=== PATIENT | male | born 1945 | race Caucasian/White ===

== ENCOUNTER → 2020-04-24 | Outpatient (CLI) | payer OTHER, BC ==
[~2020-04-24] MED LIST: ACCUPRIL40 MG PO; ADULT LOW DOSE81 MG PO; BUMETANIDE 1 MG1 M1 PO; BUPIVACAIN IMPLANT; FELDENE20 MG PO; FUROSEMIDE 20 M20 M1 PO; LIPITOR 20 MG T20 M1 PO; LOVASTAT40 PO; OMEPRAZOLE40 MG PO; PERCOCET 5-3251 EACH PO; PROAIR HFA8.5 GM INH; TUMS X-STR300 MG PO; VITAMIN C500 M2 PO
== END ==
LOC: LAB 14:29
PROVIDERS: ATTEND Orthopaedic Surgery
DX: Z01.812 Encounter for preprocedural laboratory examination (principal); Z20.822 Contact with and (suspected) exposure to COVID-19

== ENCOUNTER 2020-04-28 10:07 | Inpatient (IN) | payer OTHER, BC ==
[~2020-04-28] VITALS: Ht 182.9 cm; Wt 80.7 kg
--- NOTE | ~2020-04-28 | EKG ---
[place] [address] [facility] [place] [address] ELECTROCARDIOGRAM REPORT Name: SANA VILLATORO Rosales Room #: 201-P ADM IN M.R.#: [id number] Admission: 04/28/20 Attend Phys: Tyler Pena MD Discharge: Date of : 41 Report #: [id number] [facility] Test Date: 2020-04-30 Test Time: 12:13:10 Pat Name: SANA VILLATORO Department: Room: 201 P Gender: M Skilled Helper: CHANO : 1945 Requested By: Amari Zaldivar Order Number: [id number] MD: Measurements Intervals [place] Rate: 114 P: ND: QRS: 79 QRSD: 95 T: 92 QT: 325 QTc: 448 Interpretive Statements Atrial fibrillation Anterolateral infarct, age indeterminate Compared to ECG 04/30/2020 03:21:41 Myocardial infarct finding now present Sinus rhythm no longer present [email or web address] By: 12 121 Alberto Dominguez MD /CHRISTOPHER
[2020-04-28 13:18] VITALS: BP 148/82
[2020-04-28 13:32] LABS: CALCIUM 9.3 mg/dL (8.5-10.1); CREATININE 1.2 mg/dL (0.7-1.3); POTASSIUM 3.5 mmol/L (3.5-5.1)
[2020-04-28 19:11] VITALS: BP 127/76
--- NOTE | 2020-04-28 21:22 | NUR ---
ADMISSION ASSESSMENT COMPLETED.PT SEEMS UPSET AND DOESNT WANT TO BE BOTHERED MUCH, HOLDING HIS FOREHEAD DUE TO THE CHRONIC HEADACHE.PT HAS URINAL AVAILABLE. TOOK MEDS WHOLE, NO N/V. FEEDING SELF DINNER WITH LEFT HAND, R ELBOW RESTING ON PILLOW WITH ICE TERESA IN PLACE. PT IS AFEBRILE. PT WEANING SELF OFF OF THE OXYGEN-SATS AT 94% ON ROOM AIR AT THIS TIME. GOOD CSM TO R HAND.WILL CONTINUE WITH POC TILL EOS.
[2020-04-29 05:20] VITALS: BP 101/60
[2020-04-29 08:17] VITALS: BP 99/65
--- NOTE | 2020-04-29 16:34 | NUR ---
Case opened to follow for dc planning. Irrigation System Installer visited with the pt at bedside and cm role introduced. The pt is a&ox4 and [place], [place]. He is indep with gait, adl's and drives. He has had recurrent issues with his rt elbow from a injury 2 years ago and resulting hardware infection. He admitted for surgical I/D yesterday that included tissue and bone bx and cultures. He notes recurring headaches and recent issues with his gastric ulcers. He has had some workup per his PCP Dr. Sabas Awad. He feels the headaches might be related to a bone infection and has hx of osteo in this same elbow. His brother is his primary emergency contact, but his dtr, who is a teacher, is planning to come up and stay with him a few days at [place]. He is agreeable to HH/infusion services if indicated at [place]. Awaiting ID imput and bx/culture results. He is up ad brie in the room but weak. He denies agency preference. Home infusion referral faxed to both [facility] and [facility] for benefit check. Will have the dc nurse discharge planner check HH providers [place]: [facility], [facility].
[2020-04-29 17:00] VITALS: BP 105/68
--- NOTE | 2020-04-29 17:20 | NUR ---
FAXED REFERRAL TO [facility]. CONFIRMED WITH ANG THAT THEY COULD SEE PATIENT IN [place], [place] FOR NURSING, OT AND WOUND CARE ON 05/01/20. [facility] [employer] SCIENTIST SENT REFERRALS FOR INFUSION THERAPY. (ANSWERING SERVICE ONLY AVAILABLE AT [facility] AND [facility] SO CONTACTED [facility].) [facility] P [phone]; FAX [phone]
[2020-04-29 17:29] VITALS: BP 105/68
[2020-04-29 20:55] VITALS: BP 106/66
[2020-04-30] VITALS (13 sets, daily range): BP systolic 93–104; BP diastolic 58–71
--- NOTE | 2020-04-30 02:50 | NUR ---
PT CALLED AT ABOUT 2345 WITH C/O CHEST PRESSURE. HE WAS HAVING DIFFICULTY BREATHING LAYING FLAT AND HAD TO ELEVATE HOB. STAT O2 WAS 97% ON ROOM AIR.PT PLACED ON /. CALL PLACED TO RUBY RIVAS CALLED LATER FOR HOSPITALIST TO BE CONSULTED.REVIEW OF CHART SHOWS PCP DR MAYNARD IS FOLLOWING PT.PT SYMPTOMS RESOLVED BY AROUND 0100.DENIES ANY PAIN OR DISCOMFORT AT THIS TIME. WILL DO EKG PER ORDERS, THEN UPDATE DOCTOR.
[2020-04-30 05:20] LABS: ABSOLUTE NEUTROPHILS 4.4 thou/uL (1.4-8.2); BASOPHILS 0.3 % (0.0-2.0); EOSINOPHILS 0.9 % (0.0-3.0); HEMATOCRIT 34.4 % (42.0-52.0); HEMOGLOBIN 11.4 gm/dL (14.0-18.0); LYMPHOCYTES 21.3 % (24.0-44.0); MCH 31.3 pg (26.0-34.0); MCV 94.9 fL (80.0-100.0); MONOCYTES 8.4 % (1.0-8.0); PLATELET COUNT 135 thou/uL (150-400); POLYS 69.1 % (36.0-66.0); RBC 3.63 mil/uL (4.50-6.00); RDW 13.8 % (10.5-14.5); WBC 6.4 thou/uL (4.0-11.0)
[2020-04-30 06:01] LABS: ALBUMIN 2.9 g/dL (3.4-5.0); ANION GAP 5 mmol/L (7-16); BUN 19 mg/dL (7-18); CALCIUM 8.8 mg/dL (8.5-10.1); CHLORIDE 105 mmol/L (98-107); CO2 32 mmol/L (21-32); CREATININE 1.3 mg/dL (0.7-1.3); GLUCOSE 111 mg/dL (74-106); POTASSIUM 3.7 mmol/L (3.5-5.1); SGOT 31 U/L (15-37); SGPT 18 U/L (30-65); SODIUM 142 mmol/L (136-145); TOTAL BILIRUBIN 0.2 mg/dL (0.2-1.0)
--- NOTE | 2020-04-30 07:27 | EKG ---
[place] [address] [facility] [place] [address] ELECTROCARDIOGRAM REPORT Name: SANA VILLATORO Room #: 443- ADM IN M.R.#: [id number] Admission: 04/28/20 Attend Phys: Tyler Pena MD Discharge: Date of : 41 Report #: [id number] [facility] Test Date: 2020-04-30 Test Time: 03:21:41 Pat Name: SANA VILLATORO Department: Room: 443 P Gender: M Medical Laboratory Technical Officer: LIZETH : 1945 Requested By: Martita Daniels Order Number: [id number] : Seth Lacy Measurements Intervals [place] Rate: 60 P: 75 ME: 216 QRS: 54 QRSD: 105 T: 102 QT: 466 QTc: 466 Interpretive Statements Sinus rhythm Borderline prolonged ME interval Borderline low voltage, extremity leads Nonspecific T abnrm, anterolateral leads Compared to ECG 04/05/2011 09:24:25 Inferior Q waves no longer present Q waves no longer present Electronically Signed On 04-30-2020 7:27:34 LIGHT RAIL TRAIN OPERATOR by Seth Lacy [email or web address] <ELECTRONICALLY SIGNED> By: Seth Lacy MD, [facility] 04/30/20 0727 032 032 Seth Lacy MD, [facility] /EPI
[2020-04-30 09:16] LABS: CHOLESTEROL 103 mg/dL (<200); HDL CHOLESTEROL 48 mg/dL (>40); LDL CHOLESTEROL 42 mg/dL (<100); TC:HDL 2.1 Ratio (Not establshd); TRIGLYCERIDE 69 mg/dL (<150); VLDL 14 mg/dL (<40)
--- NOTE | 2020-04-30 11:07 | NUR ---
ASSUMED CARE OF PATIENT AT 0645 DR MAYNARD HERE TO SEE PATIENT SEE NEW ORDERS IN CHART. LAB CALLED TROPONIN [address] MAYNARD AT 0820 TO GIVE LAB RESULTS. HE GAVE ORDER TO CONTACT DR ELDER FOR CONSULT AND ORDERS. DR OHARA TO UNIT WITH TRACKMAN, ORDERS IN CHART FOR ASPIRIN XS1 WAS GIVEN. MOVE TO CC TELE PROPOSAL ENGINEER NOTIFIED. PT TO MOVE TO 201.
--- NOTE | 2020-04-30 11:33 | NUR ---
CALLED REPORT TO CC TELE NURSE DIANA ALSO TOLD HER THAT PT WAS NPO ATE DINNER LAST NIGHT NO BREAKFAST. WAS GIVEN ASPIRIN XS 1. LAB CALLED TROPONIN LAB RESULT WAS 2.[address] MAYNARD WAS CALLED AT 0900 TELE TO REPORT TO DR OHARA THAT TROPONIN WAS 2.31 . WILL TRANPORT PATIENT TO ROOM 201.
--- NOTE | 2020-04-30 11:48 | NUR ---
PATIENT TAKEN AT THIS TIME TO DENSITOMETRIST AT THIS TIME AND THEN WILL BE TAKEN TO CC TELE ROOM 201
--- NOTE | 2020-04-30 12:13 | O ---
[facility] [place] [address] OPERATIVE REPORT Name: SANA VILLATORO Room #: 201-P [facility] IN M.R.#: [id number] Admission: 04/28/20 Attend Phys: Tyler Pena MD Discharge: Date of : 41 Report #: [id number] THIS REPORT FOR: cc: Sabas Awad Donald L. 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 PROCEDURE: Debridement and irrigation of the right olecranon bursa as well as the right proximal ulna. SURGEON: Tyler Pena MD. FLARE BREAKER: Ellie Castillo PA-C. ANESTHESIA: LMA. TOURNIQUET TIME: 13 minutes. ESTIMATED BLOOD LOSS: 10 mL. COMPLICATIONS: None. SPECIMENS: Skin was sent for permanent pathology. Cultures were taken of the bone as well as bone fragments themselves were sent for culture. CONDITION UPON LEAVING THE OPERATING ROOM: Stable. INDICATIONS FOR PROCEDURE: The patient is a 74-year-old gentleman who has had right olecranon osteomyelitis about 2 years ago. He has a history of olecranon fracture with multiple surgeries with hardware placement and then hardware removal. After his olecranon bursitis 2 years ago, he has had continued flaking as well as occasional drainage of the incision over his olecranon. His symptoms were consistent with a possible chronic osteomyelitis. After discussion with him regarding treatment options, we elected for debridement and irrigation of the olecranon bursa as well as opening of the bone and debridement of the bone itself with cultures in order to hopefully treat this with IV antibiotics. DESCRIPTION OF PROCEDURE: Risks, benefits, alternatives, complications were discussed in detail with the patient including but not limited to risk of anesthesia, risk of damage to nerves, arteries, blood vessels, risk for [facility] [address] [place] [address] OPERATIVE REPORT Name: SANA VILLATORO Room #: 201-P [facility] IN [facility].#: [id number] Admission: 04/28/20 Attend Phys: Tyler Pena MD Discharge: Date of : 43 Report #: [id number] infection, bleeding, risk for continued elbow drainage and need for reoperation. Informed consent was obtained from the patient. Right elbow was appropriately marked in the preoperative holding area. Preoperative antibiotics were held until intraoperative cultures were obtained. He was brought to the operating room and placed in the supine position on the operating room table. LMA anesthesia was induced without complication. Tourniquet was placed on the right upper extremity. Right upper extremity was prepped and draped in normal sterile fashion. Timeout was performed properly identifying the patient and procedure and all in the operating room were in agreement. The right upper extremity was elevated, tourniquet was inflated. Tourniquet time was 13 minutes. The scar was then excised and sent for permanent pathology to rule out any sort of squamous cell carcinoma. The deep incision was taken down to the bone with #15 blade and there was noted to be chronic bursitis. This was removed sharply with a #15 blade and also with a rongeur. The periosteum was then removed from the olecranon and a small drill was used to drill 4 drill holes. These were connected with an osteotome in order to create a rectangular window into the olecranon itself. After opening the window, the bone was curetted and cultures of this were taken as well as the bone was sent for culture itself. The wound was thoroughly irrigated with normal saline. A Hemovac drain was placed and the skin was closed with 3-0 nylon. Soft dressing was applied. The patient tolerated this procedure well and went to recovery room under care of anesthesia postoperatively. <ELECTRONICALLY SIGNED> By: Tyler Pena MD 04/30/20 1213 1629 1652 Tyler Pena MD /nt
--- NOTE | 2020-04-30 13:21 | 2DMMODE ---
[facility] [place] [address] 2 D/M-MODE ECHOCARDIOGRAM Name: SANA VILLATORO Room #: 201-P [facility] IN M.R.#: [id number] Admission: 04/28/20 Attend Phys: Tyler Pena MD Discharge: Date of : 43 Report #: [id number] THIS REPORT FOR: cc: Sabas Awad Donald L. DO Park, Jin S. MD ~ ADDENDUM APPROVED REPORT Study performed: 04/30/2020 10:18:03 EXAM: Comprehensive 2D, Doppler, and color-flow Echocardiogram Patient Location: Bedside Room #: 443 Status: routine BSA: 2.03 HR: 80 bpm BP: 98/62 mmHg Rhythm: Irregular heart rhythm. In and out of Sinus. Other Information Study Quality: Good/lung artifact Indications Chest pain, elevated troponin. Heart rate ranged from 60's to 120's during exam. Hx: AK, HTN, HLP. 2D Dimensions IVSd: 12.53 (7-11mm) LVOT Diam: 21.64 (18-24mm) LVDd: 44.59 mm PWd: 10.06 (7-11mm) Ascending Ao: 36.33 (22-36mm) LVDs: 38.50 (25-40mm) Aortic Root: 38.50 mm Volumes Left Atrial Volume (Systole) Single Plane 4CH: 40.50 mL Single Plane 2CH: 53.70 mL LA ESV Index: 26.00 mL/m2 Aortic Valve AoV Peak Fabrizio.: 1.18 m/s AO Peak Gr.: 5.60 mmHg LVOT Max P.36 mmHg LVOT Max V: 0.92 m/s ALIX Vmax: 2.85 cm2 [facility] [address] [place] [address] 2 D/M-MODE ECHOCARDIOGRAM Name: SANA VILLATORO Room #: [facility] IN [facility]#: [id number] Admission: 04/28/20 Attend Phys: Tyler Pena, Discharge: Date of : 43 Report #: [id number] Mitral Valve MV Decel. Time: 135.97 ms MV E Max Fabrizio.: 0.98 m/s Pulmonary Valve PV Peak Fabrizio.: 0.87 m/s PV Peak Gr.: 3.06 mmHg Tricuspid Valve TR Peak Fabrizio.: 2.25 m/s RAP Estimate: 5.00 mmHg TR Peak Gr.: 20.28 mmHg PA Pressure: 25.00 mmHg Left Ventricle The left ventricle is normal size. There is hypokinesis of the mid to apical anterior and distal inferolateral segments. Mild basal septal hypertrophy is present. Left ventricular systolic function is moderate to severely decreased. Segmental wall motion abnormalities are present. LVEF is 30%. This study is not technically sufficient to allow evaluation of the LV diastolic function due to arrhythmia. Right Ventricle The right ventricle is normal size. The right ventricular systolic function is normal. Atria The left atrium size is normal. The right atrium size is normal. Aortic Valve The aortic valve is normal in structure; mildly calcified. Mild aortic regurgitation. There is no aortic valvular stenosis. Mitral Valve The mitral valve is normal in structure. Trace mitral regurgitation. Tricuspid Valve The tricuspid valve is normal in structure. Trace tricuspid regurgitation. Estimated PAP is 25mmHg. Pulmonic Valve Pulmonic valve is not well visualized. Mild pulmonic regurgitation. [facility] [address] [place] [address] 2 D/M-MODE ECHOCARDIOGRAM Name: SANA VILLATORO Rosales Room #: 201-P [facility] IN .R.#: [id number] Admission: 04/28/20 Attend Phys: Tyler Pena, Discharge: Date of : 41 Report #: [id number] Great Vessels Aortic root is borderline dilated. The ascending aorta is normal in size. IVC is normal in size and collapses >50% with inspiration. Pericardium There is no pericardial effusion. <Conclusion> The left ventricle is normal size. Left ventricular systolic function is moderate to severely decreased. Segmental wall motion abnormalities are present. The right ventricle is normal size. The left atrium size is normal. Mild aortic regurgitation. Trace mitral regurgitation. <ELECTRONICALLY SIGNED> By: Amari Zaldivar MD 04/30/20 1321 1321 1321 Amari Zaldivar MD /JONATHAN
--- NOTE | 2020-04-30 14:04 | NUR ---
Pt transfered to CCU s/p Cardiac cath today. ID notes plans for tx at dc uncertain pending cultures. [facility] and [facility] home infusion companies updated. They are both in network with his ins if iv atb are indicated at dc. Pt's out of pocket cost will depend on the iv atb ordered. [facility] can provide service in his area. Will f/u tomorrow to determine if home infusion/hh needed at dc.
--- NOTE | 2020-04-30 18:11 | NUR ---
Patient alert and oriented, calm and cooperative; denied pain, no n/v. Cadiac catheter dress dry and intact, no signs of bleeding. Stayed in bed straight until 4 pm. had dinner 100%, tolerated well. no short of breathing.
--- NOTE | 2020-05-01 03:09 | NUR ---
PATIENTS CARES WERE ASSUMED AT SHIFT CHANGE. PATIENT WAS ASSESSED AND MEDS WERE PASSED. PATIENT HAS HIS RIGHT ARM GERRY WRAPPED DUE TO AN I&D PROCEDURE. PATIENT HAS EXCPECTATIONS OF GOING HOE IN THE MORNING.PATIENT DID REQUEST A SLEEPING PILL AT 0210 AND OFFERED HIM TORADOL AND HYDROCODONE. HE TOOK THE TORADOL AND REFUSED THE HYDROCODONE. HOURLY ROUNDS WERE MADE. THE BED IS IN A LOW AND LOCKED POSITION
[2020-05-01 04:45] VITALS: BP 107/68
[2020-05-01 04:52] LABS: CALCIUM 8.8 mg/dL (8.5-10.1); CREATININE 1.1 mg/dL (0.7-1.3); POTASSIUM 3.8 mmol/L (3.5-5.1)
[2020-05-01 05:34] LABS: HEMOGLOBIN 11.8 gm/dL (14.0-18.0); MCH 31.1 pg (26.0-34.0); MCHC 32.9 g/dL (28.0-37.0); MCV 94.5 fL (80.0-100.0); RBC 3.81 mil/uL (4.50-6.00); RDW 13.8 % (10.5-14.5)
--- NOTE | 2020-05-01 07:25 | EKG ---
[place] [address] [facility] [employer] 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: CHANO : 1945 Requested By: Amari Zaldivar Order Number: [id number] MD: Seth Lacy Measurements Intervals [place] Rate: 59 P: 67 ME: 228 QRS: 66 QRSD: 109 T: 116 QT: 458 QTc: 454 Interpretive Statements Sinus rhythm Prolonged ME interval Anterior infarct, age indeterminate Lateral leads are also involved Compared to ECG 04/30/2020 12:13:10 First degree AV block now present Atrial fibrillation no longer present Myocardial infarct finding still present Electronically Signed On 05-01-2020 7:25:33 MIX HOUSE TENDER by Seth Lacy [email or web address] <ELECTRONICALLY SIGNED> By: Seth Lacy MD, [facility] 05/01/20724 2 2 Seth Lacy MD, [facility] /EPI
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
[2020-05-01 08:29] VITALS: BP 147/69
--- NOTE | 2020-05-01 11:18 | CATHLAB ---
[facility] [place] [address] INVASIVE PROCEDURE REPORT Name: SANA VILLATORO Room #: 201-P ADM IN M.R.#: [id number] Admission: 04/28/20 Attend Phys: Tyler Pena MD Discharge: Date of : 41 Report #: [id number] THIS REPORT FOR: cc: Sabas Awad Donald L. DO Park, Jin S. MD ~ APPROVED REPORT Study performed: 04/30/2020 11:59:37 Patient Details Patient Status: In-Patient Room #: The patient is a 74 year-old male Event Personnel Amari Zaldivar Life Skills Consultant, Maciel Mayer RN RN, Sheri Ledezma RTR Scrub, Leida Scott RTR Monitor Procedures Performed Art Access - R femoral artery* Left Heart Cath w/or w/o Coronaries [id number] [facility] 390[address] Initial Mod Sed Same Phys/QHP Gr5y 958881 22981 Mod Sed Same Phys/QHP Ea 986888 Hemostasis with Manual pressure Indication Abnormal ECG, Non-STEMI , Atrial fibrillation, Cardiomyopathy, Chest pain Risk Factors Hypercholesterolemia, Hypertension Procedure Narrative The Right Groin^ was infiltrated with 1% Lidocaine subcutaneous anesthesia. A 4FR MULTIPACK JR 4/JL 4/PIG #[id number] sheath was inserted into the RFA^. Coronary angiography was performed using coronary diagnostic catheters. The right coronary system was accessed and visualized with a JR4 catheter. The left coronary system was accessed and visualized with a JL4 catheter. The left ventricle was accessed and visualized with a PIGTAIL catheter. Hemostasis was obtained with manual pressure following sheath removal without any complications. The patient tolerated the procedure well and there were no complications associated with the procedure. There was no hematoma. During the procedure, the patient had atrial fibrillation with a rapid ventricular rate and and a low blood pressure. The heart rate [facility] [address] [place] [address] INVASIVE PROCEDURE REPORT Name: SANA VILLATORO Rosales Room #: 201-P [facility] IN .R.#: [id number] Admission: 04/28/20 Attend Phys: Tyler Pena, Discharge: Date of : 41 Report #: [id number] improved with IV digoxin. Intraoperative Conscious Sedation Sedation start time: 1225 Case end Time: 1258 Fentanyl 50 mcg Versed 1 mg Fluoro Time: 3.00 minutes Dose: DAP 4274.20 cGycm2 614 mGy Contrast Type and Amount: Visipaque 50 ml Coronary Angiography The patient's coronary anatomy is right dominant. Diagnostic Cath Left Main The left main artery is a large-caliber vessel, patent with no flow-limiting lesions. LAD The LAD is a moderate to large caliber vessel, traverses the anterior wall and wraps around the apex. There is mild disease in the proximal mid segments, less than 20%. Diagonal 1 This is a moderate-sized caliber vessel, patent with no flow-limiting lesions. Circumflex This is a moderate-sized caliber vessel with mild disease in the proximal segment, 20%. OM1 This is a moderate-sized caliber vessel, patent with no flow-limiting lesions. OM2 There is a patent vessel, with no flow-limiting lesions. Right Coronary The RCA is a moderate to large caliber vessel, dominant. There is a mild to moderate stenosis in the midsegment, 40%. R PDA This is a moderate-sized caliber vessel, patent with no flow-limiting lesions. RPLV This is a moderate-sized caliber vessel, patent with no flow-limiting lesions. Left Ventriculography Left Ventriculography was not performed. Ejection Fraction was 30% based off patient's Echocardiogram. An LVEDP was measured and there is no gradient across the outflow tract. Hemodynamics The aortic pressure is 80/54 mmHg with a mean of 63 mmHg. The left ventricular pressure is 82/17 mmHg with a mean of mmHg. The left ventricular end diastolic pressure is 27 mmHg. Conclusion [facility] [address] [place] [address] INVASIVE PROCEDURE REPORT Name: SANA VILLATORO Room #: 201-P [facility] IN M.R.#: [id number] Admission: 04/28/20 Attend Phys: Tyler Pena, Discharge: Date of : 41 Report #: [id number] 1. Takotsubo Cardiomyopathy. 2. 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 3. New onset atrial fibrillation. 4. Recommend guideline directed medical therapy. <ELECTRONICALLY SIGNED> By: Amari Zaldivar MD 05/01/20 1118 1118 1118 Amari Zaldivar MD /INF
[2020-05-01 11:42] VITALS: BP 114/65
--- NOTE | 2020-05-01 15:07 | PATH ---
[facility] [address] [place] [address] PATHOLOGY RPT PROCEDURE Name: BRANDAN CORDERO Room #: 201-P [facility] IN .R.#: [id number] Admission: 04/28/20 Date of : 41 Discharge: Report #: [id number] Path Case #: [id number] [facility] Accession Number: [id number] . 01 Material submitted: . elbow - DEBRIDEMENT WITH IRRIGATION/DIRECT INFECTION OF RIGHT ELBOW . 01 Clinician provided ICD-10: 90356004 . 02 Diagnosis: Skin, right elbow, debridement with irrigation: - Hyperkeratotic reactive squamous epithelium overlying mild chronic inflammation. - Negative for malignancy. (IUV:ernesto; 05/01/2020) QMS 05/01/2020 1303 Local . 02 Electronically signed: . Sherrell Jaeger MD, Pathologist NPI- [id number] . 01 Gross description: . The specimen is received in formalin, labeled "Brandan Cordero, R elbow" and consists of an unoriented segment of blue-obrien flaky skin measuring 3.4 x 0.5 x 0.2 cm. It is serially sectioned and entirely submitted in A1. (SDY; 04/30/2020) SYU/SYU 04/30/2020 1528 Local . 02 Pathologist provided ICD-10: L08.9 . 02 CPT . 403136 Specimen Comment: A courtesy copy of this report has been sent to [phone], [phone] Specimen Comment: [phone] Specimen Comment: Report sent to / DR MAYNARD Performed at: [address], [place], [place] [id number] MD Otf Corona MD Phone: [phone] Performed at: [address] [id number] MD Sherrell Jaeger MD Phone: [phone]
--- NOTE | 2020-05-01 15:27 | NUR ---
A #4F SINGLE LUMEN POWER PICC WAS PLACED PER HOSPITAL POLICY AFTER A BEDSIDE TIMEOUT WAS COMPLETED. LINE WAS TRIMMED TO 52CM ANDADVANCED WITHOUT DIFFICULTY. A STAT CHEST XRAY CONFIRMED LINE AT THE [facility] AND IN GOOD POSITION FOR USE
[2020-05-01 15:44] VITALS: BP 134/61
--- NOTE | 2020-05-01 16:54 | NUR ---
ASSUMED CARE AT CHANGE OF SHIFT. PT ALERTX4, HEADACHE PAIN MANAGED WITH PRN MEDICATION. DENIES CHEST PAIN, COPLAINTS OF NOT SLEEPING WELL. AB SUZIE IN ROOM. SR ON TELE. SCHEDULED MEDS GIVEN ORDERED. DR SIFUENTES ROUNDED WITH NEW ORDERS. PICC LINE PLACED. SEE NURSE ORDER FOR DRESSING CHANGE CARE TO RIGHT ARM. PT WILL REQUIRE HH NEEDS FOR HOME ANTIBIOTICS INFUSION. CM FOLLOWING AND REQUESTING DR WOODSON TO INFORM RN ANTIBIOTIC PT WILL DC HOME. PT OKAY TO SHOWER TODAY AND APPLY DRESSING PER ORDERS. PERSONAL ITEMS IN REACH. PT CALLS FOR ASSISTANCE.
--- NOTE | 2020-05-01 17:05 | NUR ---
Pt got picc line placed today. Possible dc home tomorrow with iv atb and jannette RN. [facility] and [facility] updated. CM will need iv drug and dosing to get an out of pocket cost for the pt. Supportive visit provided. Awaiting ID imput. Will f/u with all parites in the am.
[2020-05-01 17:06] VITALS: BP 105/68
[2020-05-01 19:13] VITALS: BP 97/57
[2020-05-02 05:01] VITALS: BP 109/56
[2020-05-02 06:47] LABS: ABSOLUTE NEUTROPHILS 3.2 thou/uL (1.4-8.2); BASOPHILS 0.7 % (0.0-2.0); EOSINOPHILS 3.1 % (0.0-3.0); HEMATOCRIT 33.3 % (42.0-52.0); HEMOGLOBIN 10.8 gm/dL (14.0-18.0); LYMPHOCYTES 22.1 % (24.0-44.0); MCH 30.9 pg (26.0-34.0); MCHC 32.4 g/dL (28.0-37.0); MCV 95.4 fL (80.0-100.0); MONOCYTES 10.2 % (1.0-8.0); PLATELET COUNT 123 thou/uL (150-400); POLYS 63.9 % (36.0-66.0); RBC 3.49 mil/uL (4.50-6.00); RDW 13.7 % (10.5-14.5)
[2020-05-02 07:03] LABS: CALCIUM 8.3 mg/dL (8.5-10.1); CREATININE 1.1 mg/dL (0.7-1.3); POTASSIUM 3.9 mmol/L (3.5-5.1)
[2020-05-02 07:14] VITALS: BP 116/69
--- NOTE | 2020-05-02 07:44 | NUR ---
patients care were assumed at shift change. patient was assessed and meds were passed. mellisa wrap was made looser to help with discomfort. patient was able to sleep this shift without the help of ambien. he did request toradol for his headache. hourly rounds were made. the bed was in a low and locked position. patient is to go home with abx iv therapy.
[2020-05-02] MEDS ORDERED: CARVEDILOL3.125 MG PO (09:24)
[2020-05-02] MEDS ORDERED: ASPIRIN325 PO ×2 (09:24→11:12)
[2020-05-02 11:23] VITALS: BP 118/58
--- NOTE | 2020-05-02 14:50 | NUR ---
Pt dcing home this afternoon via friend's car. Jovita from [facility] here this afternoon to do teaching visit for iv atb. She has brought a week's worth of the drug and supply for him to take home. Pt aware of copay $152 a week which includes drug and supplies. [facility] aware of referral and have the pt scheduled for tomorrow. Awaiting final orders to fax to [place] as ortho is the admitting. Nursing to check with his pcp Dr. Sabas Awad to see if he can do the hh orders as he will be following in the community.
[2020-05-02] MEDS ORDERED: ANCEF 1GM1 GM/50 M2 IV (15:37)
[2020-05-02 15:59] VITALS: BP 105/68
--- NOTE | 2020-05-02 16:11 | NUR ---
FAXED DISCHARGE ORDERS AND SUMMARY TO [facility] AND [facility]. WILL CALL TO CONFIRM THEY RECEIVED. [facility] P [phone]; FAX [phone] [facility] P [phone]; FAX [phone]
--- NOTE | 2020-05-02 16:58 | NUR ---
ASSUMED CARE AT CHANGE OF SHIFT. ALERT AND ORIENTED. AB SUZIE IN ROOM. DRESSING TO RIGHT UE INTACT. [facility] [employer] ROUNDED AND PROVIDED EDUCATION FOR ANTIBIOTIC THROUGH PICC LINE. DC INSTRUCTION REVIEWED. PT DC HOME WITH HH. SENT WITH ALL BELONGINGS AND ANTIBIOTICS BROUGT BY [employer]. TELE REMOVED. SENT WITH EXTRA DRESSING.
== END 2020-05-02 17:02 | disposition home health service (06) | DRG 511 ==
LOC: PRE 10:07 → TBA 12:27 → 4S 12:27 → PRE 13:22 → 4S 17:11 → 2N 04-30 11:43
PROVIDERS: Anesthesiology; Internal Medicine; Internal Medicine Cardiovascular Disease; Nurse Practitioner Adult Health; Specialist; ADMIT Orthopaedic Surgery; ATTEND Orthopaedic Surgery
PROC: 0PBK0ZZ Excision of Right Ulna, Open Approach (ICD-10-PCS; principal; 2020-04-28)
PROC: B211YZZ Fluoroscopy of Multiple Coronary Arteries using Other Contrast (ICD-10-PCS; 2020-04-30)
PROC: 4A023N7 Measurement of Cardiac Sampling and Pressure, Left Heart, Percutaneous Approach (ICD-10-PCS; 2020-04-30)
PROC: 02HV33Z Insertion of Infusion Device into Superior Vena Cava, Percutaneous Approach (ICD-10-PCS; 2020-05-01)
DX: M86.8X3 Other osteomyelitis, forearm (principal); N17.9 Acute kidney failure, unspecified; I51.81 Takotsubo syndrome; M70.21 Olecranon bursitis, right elbow; I25.119 Atherosclerotic heart disease of native coronary artery with unspecified angina pectoris; G89.29 Other chronic pain; K57.90 Diverticulosis of intestine, part unspecified, without perforation or abscess without bleeding; M16.0 Bilateral primary osteoarthritis of hip; E78.2 Mixed hyperlipidemia; J43.8 Other emphysema; Z88.6 Allergy status to analgesic agent; M50.30 Other cervical disc degeneration, unspecified cervical region; M51.36 Other intervertebral disc degeneration, lumbar region; K21.9 Gastro-esophageal reflux disease without esophagitis; G43.909 Migraine, unspecified, not intractable, without status migrainosus; I12.9 Hypertensive chronic kidney disease with stage 1 through stage 4 chronic kidney disease, or unspecified chronic kidney disease; E78.5 Hyperlipidemia, unspecified; N18.9 Chronic kidney disease, unspecified; I51.3 Intracardiac thrombosis, not elsewhere classified; I48.0 Paroxysmal atrial fibrillation; Z88.8 Allergy status to other drugs, medicaments and biological substances; Z98.49 Cataract extraction status, unspecified eye
CPT/HCPCS: 10081; 10102; 27000; 50010; 50101; 50386; 53078; 56527; 57091; 57103; 57178; 62110; 62900; 70005

== ENCOUNTER → 2020-05-15 | Outpatient (CLI) | payer OTHER, BC ==
[~2020-05-15] MED LIST changes: +ANCEF 1GM1 GM/50 M2 IV; +ASPIRIN325 PO; +CARVEDILOL3.125 MG PO
== END ==
LOC: SJCVC 11:38
PROVIDERS: ATTEND Internal Medicine Cardiovascular Disease
DX: R94.31 Abnormal electrocardiogram [ECG] [EKG] (principal); I44.0 Atrioventricular block, first degree; I13.0 Hypertensive heart and chronic kidney disease with heart failure and stage 1 through stage 4 chronic kidney disease, or unspecified chronic kidney disease; I50.21 Acute systolic (congestive) heart failure; N18.9 Chronic kidney disease, unspecified; I48.0 Paroxysmal atrial fibrillation; I25.10 Atherosclerotic heart disease of native coronary artery without angina pectoris; E78.00 Pure hypercholesterolemia, unspecified; Z88.8 Allergy status to other drugs, medicaments and biological substances; E78.5 Hyperlipidemia, unspecified; Z98.890 Other specified postprocedural states; Z79.82 Long term (current) use of aspirin; Z79.899 Other long term (current) drug therapy